=== PATIENT | male | born 1975 | race Caucasian/White ===

== ENCOUNTER 2017-08-23 23:15 | Inpatient (IN) | payer SELFPAY ==
[2017-08-23 23:47] VITALS: BMI 21.5
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
[2017-08-24] MEDS ORDERED: MAGNESIUM HYDROX 2400MG/30ML ORAL SUSPENSION 30 ML CUP PO PRN (01:04)
[2017-08-24] MEDS ORDERED: ACETAMINOPHEN 325 MG TABLET (FP) PO PRN (01:04)
[2017-08-24] MEDS ORDERED: METHADONE HCL 10 MG TABLET (FOR DETOX USE ONLY) PO ONE ×3 (01:04→23:00)
[2017-08-24] MEDS ORDERED: MENTHOL/PHENOL 1 EACH UD MM PRN (01:04)
[2017-08-24] MEDS ORDERED: IBUPROFEN 400 MG TABLET (FP) PO PRN (01:04)
[2017-08-24] MEDS ORDERED: MAGNESIUM CITRATE 300 ML BOTTLE PO PRN (01:04)
[2017-08-24] MEDS ORDERED: P-EPHED 60MG/TRIPROLIDI 2.5MG TABLET PO PRN (01:04)
[2017-08-24] MEDS ORDERED: LOPERAMIDE HCL 2 MG CAPSULE PO PRN (01:04)
[2017-08-24] MEDS ORDERED: MAG HYDROX/AL HYDROX/SIMETH 30 ML UNIT-DOSE CUP PO PRN (01:04)
[2017-08-24] MEDS ORDERED: diazePAM 5 MG TABLET PO ONE (01:04)
[2017-08-24] MEDS ORDERED: guaiFENesin/D-METHORPHAN HB 10 ML UNIT-DOSE CUPS PO PRN (01:04)
[2017-08-24] MEDS: diazePAM 5 MG TABLET PO SCH ×3 (05:46→22:48)
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
[2017-08-24] MEDS: PRENATAL VITAMINS W/ FOLIC ACID TABLET (FP) PO SCH (10:38)
--- NOTE | 2017-08-24 10:46 | EKG ---
Test Reason : Blood Pressure : / mmHG Vent. Rate : 065 BPM Atrial Rate : 065 BPM P-R Int : 138 ms QRS Dur : 088 ms QT Int : 408 ms P-R-T Axes : 066 086 073 degrees QTc Int : 424 ms NORMAL SINUS RHYTHM WITH SINUS ARRHYTHMIA NORMAL ECG NO PREVIOUS ECGS AVAILABLE Confirmed by TAL DENIS, TONIE ([id number]) on 08/24/2017 10:46:39 AM Referred By: Confirmed By:TONIE PARADA MD
[2017-08-24 11:17] LABS: HEMATOCRIT 33.3 % (35.4-49); HEMOGLOBIN 11.4 GM/dL (11.7-16.9); MCH 29.8 pg (25.7-33.7); MCHC 34.3 g/dl (32.0-35.9); MEAN CELL VOLUME 86.9 fl (80-96); MEAN PLT VOLUME 8.5 fl (7.5-11.1); PLATELET COUNT 217 K/MM3 (134-434); RBC 3.83 M/mm3 (4.00-5.60); RDW 13.8 % (11.9-15.9); WHITE BLOOD COUNT 6.8 K/mm3 (4.0-10.0)
[2017-08-24 11:30] LABS: ALBUMIN 3.3 g/dl (3.4-5.0); ANION GAP 2 (8-16); BLOOD UREA NITROGEN 23 mg/dL (7-18); CALCIUM 8.1 mg/dL (8.5-10.1); CHLORIDE 109 mmol/L (98-107); CO2 33 mmol/L (21-32); GLUCOSE,RANDOM 122 mg/dL (74-106); SGOT/AST 11 U/L (15-37); SGPT/ALT 14 U/L (12-78); SODIUM 144 mmol/L (136-145)
[2017-08-24 11:32] LABS: ALK PHOS 43 U/L (45-117); BILIRUBIN,TOTAL 0.3 mg/dL (0.2-1.0); CREATININE 0.9 mg/dL (0.7-1.3); TOT PROT 6.2 g/dl (6.4-8.2)
--- NOTE | 2017-08-24 16:17 | PN ---
[facility] CIWA - CIWA Score Nausea/Vomitin-No Nausea/No Vomiting Muscle Tremors: None Anxiety: 4-Mod. Anxious/Guarded Agitation: 4-Moderately Restless Paroxysmal Sweats: 3 Orientation: 0-Oriented Tacttile Disturbances: 3-Moderate Itch/Numb/Burn Auditory Disturbances: 2-Mild Harshness/Frighten Visual Disturbances: 0-None Headache: 0-None Present CIWA-Ar Total Score: 16 S COWS - Scale Resting Pulse: 0= [place] 80 or Below Sweatin= Chills/Flushing Restless Observation: 1= Difficult to Sit Still Pupil Size: 0= Normal to Room Light Bone or Joint Aches: 2= Severe Diffuse Aches Runny Nose/ Eye Tearin= Runny Nose/Eyes GI Upset > 30mins: 0= None Tremor Observation of Outstretched Hands: 0= None Yawning Observation: 1= 1-2x During Session Anxiety or Irritability: 2=Irritable/Anxious Goose Flesh Skin: 3=Piloe[place] COWS Score: 12 S Progress Note (SOAP) Subjective: Sweating, Body Aches, Anxious. Objective: PATIENT A & O X 3, OBSERVED AMBULATING ON UNIT. NO ACUTE DISTRESS. 08/24/17 16:16 Vital Signs Temperature 97.1 F L 08/24/17 14:31 Pulse Rate 57 L 08/24/17 14:31 Respiratory Rate 18 08/24/17 14:31 Blood Pressure 111/68 08/24/17 14:31 O2 Sat by Pulse Oximetry (%) Laboratory Tests 08/24/17 08/24/17 08/24/17 08:00 08:00 08:00 WBC 6.8 RBC 3.83 L Hgb 11.4 L Hct 33.3 L MCV 86.9 MCH 29.8 MCHC 34.3 RDW 13.8 Plt Count 217 MPV 8.5 Sodium 144 Potassium 4.0 Chloride 109 H Carbon Dioxide 33 H Anion Gap 2 L BUN 23 H Creatinine 0.9 Creat Clearance w eGFR > 60 Random Glucose 122 H Calcium 8.1 L Total Bilirubin 0.3 AST 11 L ALT 14 Alkaline Phosphatase 43 L Total Protein 6.2 L Albumin 3.3 L RPR Titer Nonreactive LABS NOTED. UA RESULTS PENDING. 08/24/17 16:18 Assessment: 04/29/18 16:17 WITHDRAWAL SYMPTOMS. Plan: CONTINUE DETOX.
[2017-08-24] MEDS ORDERED: MELATONIN 5 MG TABLETS PO PRN (22:00)
[2017-08-24] MEDS: THIAMINE HCL 100 MG TABLET (FP) PO SCH (22:47)
[2017-08-25] MEDS: diazePAM 5 MG TABLET PO SCH ×3 (05:10→22:14)
[2017-08-25] MEDS ORDERED: METHADONE HCL 10 MG TABLET (FOR DETOX USE ONLY) PO SCH (10:00)
[2017-08-25] MEDS: PRENATAL VITAMINS W/ FOLIC ACID TABLET (FP) PO SCH (10:15)
[2017-08-25] MEDS: diazePAM 5 MG TABLET PO PRN (10:15)
--- NOTE | 2017-08-25 12:33 | PN ---
[facility] CIWA - CIWA Score Nausea/Vomitin-No Nausea/No Vomiting Muscle Tremors: 4-Moderate,w/Arms Extend Anxiety: 4-Mod. Anxious/Guarded Agitation: 4-Moderately Restless Paroxysmal Sweats: 1-Minimal Palms Moist Orientation: 0-Oriented Tacttile Disturbances: 0-None Auditory Disturbances: 0-None Visual Disturbances: 0-None Headache: 0-None Present CIWA-Ar Total Score: 13 S COWS - Scale Resting Pulse: 1= [place] 81-100 Sweatin= Chills/Flushing Restless Observation: 3= Extraneous Movement Pupil Size: 0= Normal to Room Light Bone or Joint Aches: 1= Mild Discomfort Runny Nose/ Eye Tearin= Nasal Congestion GI Upset > 30mins: 1= Stomach Cramp Tremor Observation of Outstretched Hands: 1= Tremor [place], Not Seen Yawning Observation: 1= 1-2x During Session Anxiety or Irritability: 2=Irritable/Anxious Goose Flesh Skin: 0=Smooth Skin COWS Score: 12 [facility] Progress Note (SOAP) Subjective: ANXIETY,TREMOR,SNEEZING, NASAL CONGESTION, HOT/COLD, INTERMITTENT SLEEP. Objective: 08/25/17 12:35 Vital Signs Temperature 96.7 F L 08/25/17 09:28 Pulse Rate 98 H 08/25/17 09:28 Respiratory Rate 18 08/25/17 09:28 Blood Pressure 112/65 08/25/17 09:28 O2 Sat by Pulse Oximetry (%) Laboratory Last Values WBC 6.8 K/mm3 (4.0-10.0) 08/24/17 08:00 RBC 3.83 M/mm3 (4.00-5.60) L 08/24/17 08:00 Hgb 11.4 GM/dL (11.7-16.9) L 08/24/17 08:00 Hct 33.3 % (35.4-49) L 08/24/17 08:00 MCV 86.9 fl (80-96) 08/24/17 08:00 MCH 29.8 pg (25.7-33.7) 08/24/17 08:00 MCHC 34.3 g/dl (32.0-35.9) 08/24/17 08:00 RDW 13.8 % (11.9-15.9) 08/24/17 08:00 Plt Count 217 K/MM3 (134-434) 08/24/17 08:00 MPV 8.5 fl (7.5-11.1) 08/24/17 08:00 Sodium 144 mmol/L (136-145) 08/24/17 08:00 Potassium 4.0 mmol/L (3.5-5.1) 08/24/17 08:00 Chloride 109 mmol/L (98-107) H 08/24/17 08:00 Carbon Dioxide 33 mmol/L (21-32) H 08/24/17 08:00 Anion Gap 2 (8-16) L 08/24/17 08:00 BUN 23 mg/dL (7-18) H 08/24/17 08:00 Creatinine 0.9 mg/dL (0.7-1.3) 08/24/17 08:00 Creat Clearance w eGFR > 60 (>60) 08/24/17 08:00 Random Glucose 122 mg/dL (74-106) H 08/24/17 08:00 Calcium 8.1 mg/dL (8.5-10.1) L 08/24/17 08:00 Total Bilirubin 0.3 mg/dL (0.2-1.0) 08/24/17 08:00 AST 11 U/L (15-37) L 08/24/17 08:00 ALT 14 U/L (12-78) 08/24/17 08:00 Alkaline Phosphatase 43 U/L (45-117) L 08/24/17 08:00 Total Protein 6.2 g/dl (6.4-8.2) L 08/24/17 08:00 Albumin 3.3 g/dl (3.4-5.0) L 08/24/17 08:00 RPR Titer Nonreactive (NONREACTIVE) 08/24/17 08:00 Assessment: 08/25/17 12:35 WITHDRAWAL SX Plan: CONTINUE DETOX ACTIFED PRN
[2017-08-25 20:11] LABS: URINE APPEARANCE SLCLOUDY; URINE BILIRUBIN NEGATIVE (<2.0 mg/dL); URINE BLOOD NEGATIVE (NEGATIVE); URINE COLOR YELLOW; URINE GLUCOSE (UA) NEGATIVE (NEGATIVE); URINE KETONE NEGATIVE (NEGATIVE); URINE LEUK ESTERASE NEGATIVE (NEGATIVE); URINE NITRITE NEGATIVE (NEGATIVE); URINE PROTEIN NEGATIVE (NEGATIVE); URINE UROBILINOGEN NEGATIVE mg/dL (0.2-1.0)
[2017-08-25] MEDS: ZOLPIDEM TARTRATE 5 MG TABLET PO PRN (22:13)
[2017-08-25] MEDS: THIAMINE HCL 100 MG TABLET (FP) PO SCH (22:13)
[2017-08-26] MEDS: diazePAM 5 MG TABLET PO PRN ×4 (00:04→21:14)
[2017-08-26 09:58] LABS: HEMATOCRIT 39.4 % (35.4-49); HEMOGLOBIN 13.5 GM/dL (11.7-16.9); MCH 29.4 pg (25.7-33.7); MCHC 34.1 g/dl (32.0-35.9); MEAN CELL VOLUME 86.2 fl (80-96); MEAN PLT VOLUME 8.8 fl (7.5-11.1); PLATELET COUNT 261 K/MM3 (134-434); RBC 4.57 M/mm3 (4.00-5.60); RDW 13.9 % (11.9-15.9)
[2017-08-26] MEDS ORDERED: METHADONE HCL 5 MG TABLET (FOR DETOX USE ONLY) PO SCH (10:00)
[2017-08-26] MEDS: PRENATAL VITAMINS W/ FOLIC ACID TABLET (FP) PO SCH (10:31)
[2017-08-26] MEDS: diazePAM 5 MG TABLET PO SCH ×2 (10:31→22:02)
--- NOTE | 2017-08-26 10:41 | PN ---
[facility] Progress Note (SOAP) Subjective: ANXIETY, IRRITABILITY,INSOMNIA-AMBIEN NOT EFFECTIVE. Objective: 08/26/17 10:38 Vital Signs Temperature 96.8 F L 08/26/17 09:20 Pulse Rate 95 H 08/26/17 09:20 Respiratory Rate 18 08/26/17 09:20 Blood Pressure 135/83 08/26/17 09:20 O2 Sat by Pulse Oximetry (%) Laboratory Last Values WBC 9.0 K/mm3 (4.0-10.0) D 08/26/17 07:00 RBC 4.57 M/mm3 (4.00-5.60) 08/26/17 07:00 Hgb 13.5 GM/dL (11.7-16.9) D 08/26/17 07:00 Hct 39.4 % (35.4-49) D 08/26/17 07:00 MCV 86.2 fl (80-96) 08/26/17 07:00 MCH 29.4 pg (25.7-33.7) 08/26/17 07:00 MCHC 34.1 g/dl (32.0-35.9) 08/26/17 07:00 RDW 13.9 % (11.9-15.9) 08/26/17 07:00 Plt Count 261 K/MM3 (134-434) D 08/26/17 07:00 MPV 8.8 fl (7.5-11.1) 08/26/17 07:00 Sodium 144 mmol/L (136-145) 08/24/17 08:00 Potassium 4.0 mmol/L (3.5-5.1) 08/24/17 08:00 Chloride 109 mmol/L (98-107) H 08/24/17 08:00 Carbon Dioxide 33 mmol/L (21-32) H 08/24/17 08:00 Anion Gap 2 (8-16) L 08/24/17 08:00 BUN 23 mg/dL (7-18) H 08/24/17 08:00 Creatinine 0.9 mg/dL (0.7-1.3) 08/24/17 08:00 Creat Clearance w eGFR > 60 (>60) 08/24/17 08:00 Random Glucose 122 mg/dL (74-106) H 08/24/17 08:00 Calcium 8.1 mg/dL (8.5-10.1) L 08/24/17 08:00 Total Bilirubin 0.3 mg/dL (0.2-1.0) 08/24/17 08:00 AST 11 U/L (15-37) L 08/24/17 08:00 ALT 14 U/L (12-78) 08/24/17 08:00 Alkaline Phosphatase 43 U/L (45-117) L 08/24/17 08:00 Total Protein 6.2 g/dl (6.4-8.2) L 08/24/17 08:00 Albumin 3.3 g/dl (3.4-5.0) L 08/24/17 08:00 Urine Color Yellow 08/25/17 13:55 Urine Appearance Slcloudy 08/25/17 13:55 Urine pH 8.0 (5.0-8.0) 08/25/17 13:55 Ur Specific [place] 1.011 (1.001-1.035) 08/25/17 13:55 Urine Protein Negative (NEGATIVE) 08/25/17 13:55 Urine Glucose (UA) Negative (NEGATIVE) 08/25/17 13:55 Urine Ketones Negative (NEGATIVE) 08/25/17 13:55 Urine Blood Negative (NEGATIVE) 08/25/17 13:55 Urine Nitrite Negative (NEGATIVE) 08/25/17 13:55 Urine Bilirubin Negative (<2.0 mg/dL) 08/25/17 13:55 Urine Urobilinogen Negative mg/dL (0.2-1.0) 08/25/17 13:55 Ur Leukocyte Esterase Negative (NEGATIVE) 08/25/17 13:55 RPR Titer Nonreactive (NONREACTIVE) 08/24/17 08:00 Laboratory Tests 08/24/17 08/24/17 08/24/17 08:00 08:00 08:00 WBC 6.8 RBC 3.83 L Hgb 11.4 L Hct 33.3 L MCV 86.9 MCH 29.8 MCHC 34.3 RDW 13.8 Plt Count 217 MPV 8.5 Sodium 144 Potassium 4.0 Chloride 109 H Carbon Dioxide 33 H Anion Gap 2 L BUN 23 H Creatinine 0.9 Creat Clearance w eGFR > 60 Random Glucose 122 H Calcium 8.1 L Total Bilirubin 0.3 AST 11 L ALT 14 Alkaline Phosphatase 43 L Total Protein 6.2 L Albumin 3.3 L Urine Color Urine Appearance Urine pH Ur Specific [place] Urine Protein Urine Glucose (UA) Urine Ketones Urine Blood Urine Nitrite Urine Bilirubin Urine Urobilinogen Ur Leukocyte Esterase RPR Titer Nonreactive 08/25/17 08/26/17 13:55 07:00 WBC 9.0 D RBC 4.57 Hgb 13.5 D Hct 39.4 D MCV 86.2 MCH 29.4 MCHC 34.1 RDW 13.9 Plt Count 261 D MPV 8.8 Sodium Potassium Chloride Carbon Dioxide Anion Gap BUN Creatinine Creat Clearance w eGFR Random Glucose Calcium Total Bilirubin AST ALT Alkaline Phosphatase Total Protein Albumin Urine Color Yellow Urine Appearance Slcloudy Urine pH 8.0 Ur Specific [place] 1.011 Urine Protein Negative Urine Glucose (UA) Negative Urine Ketones Negative Urine Blood Negative Urine Nitrite Negative Urine Bilirubin Negative Urine Urobilinogen Negative Ur Leukocyte Esterase Negative RPR Titer LABS NOTED Assessment: 08/26/17 10:39 WITHDRAWAL SX Plan: CONTINUE DETOX F/U WITH PSYCH RE:INSOMNIA
[2017-08-26 11:09] LABS: CHLORIDE 104 mmol/L (98-107); POTASSIUM 4.3 mmol/L (3.5-5.1); SODIUM 142 mmol/L (136-145)
[2017-08-26 11:27] LABS: ALBUMIN 3.8 g/dl (3.4-5.0); ALK PHOS 47 U/L (45-117); ANION GAP 10 (8-16); BILIRUBIN,TOTAL 0.5 mg/dL (0.2-1.0); BLOOD UREA NITROGEN 11 mg/dL (7-18); CALCIUM 9.3 mg/dL (8.5-10.1); CO2 28 mmol/L (21-32); CREATININE 0.9 mg/dL (0.7-1.3); GLUCOSE,RANDOM 104 mg/dL (74-106); SGOT/AST 15 U/L (15-37); SGPT/ALT 15 U/L (12-78)
[2017-08-26] MEDS: THIAMINE HCL 100 MG TABLET (FP) PO SCH (22:02)
[2017-08-26] MEDS: ZOLPIDEM TARTRATE 5 MG TABLET PO PRN (22:02)
[2017-08-27 06:11] VITALS: TEMP 97.7
[2017-08-27 09:11] VITALS: BP 114/69; PULSE 82
--- NOTE | 2017-08-27 12:26 | PN ---
[facility] Progress Note (SOAP) Subjective: PT DECLINED TO CONTINUE WITH DETOX STATING HE DOES NOT WANT ANY MORE MEDICATION AND WANTS TO LEAVE. EXPLAINED TO PT THE NEED TO STAY IN TREATMENT FOR APPROPRIATE TAPER OF DETOX MEDS BUT TO NO AVAIL. PT MET WITH HIS COUNSELOR, NATHANIEL ABBOTT AND WILL FOLLOW UP AT [facility] IN [place] FOR AFTERCARE. INSTRUCTED TO FOLLOW UP AT [facility] FOR MEDICAL MANAGEMENT. Objective: 08/27/17 12:22 Vital Signs Temperature 97.7 F 08/27/17 09:10 Pulse Rate 82 08/27/17 09:10 Respiratory Rate 18 08/27/17 09:10 Blood Pressure 114/69 08/27/17 09:10 O2 Sat by Pulse Oximetry (%) Laboratory Last Values WBC 9.0 K/mm3 (4.0-10.0) D 08/26/17 07:00 RBC 4.57 M/mm3 (4.00-5.60) 08/26/17 07:00 Hgb 13.5 GM/dL (11.7-16.9) D 08/26/17 07:00 Hct 39.4 % (35.4-49) D 08/26/17 07:00 MCV 86.2 fl (80-96) 08/26/17 07:00 MCH 29.4 pg (25.7-33.7) 08/26/17 07:00 MCHC 34.1 g/dl (32.0-35.9) 08/26/17 07:00 RDW 13.9 % (11.9-15.9) 08/26/17 07:00 Plt Count 261 K/MM3 (134-434) D 08/26/17 07:00 MPV 8.8 fl (7.5-11.1) 08/26/17 07:00 Sodium 142 mmol/L (136-145) 08/26/17 07:00 Potassium 4.3 mmol/L (3.5-5.1) 08/26/17 07:00 Chloride 104 mmol/L (98-107) 08/26/17 07:00 Carbon Dioxide 28 mmol/L (21-32) 08/26/17 07:00 Anion Gap 10 (8-16) 08/26/17 07:00 BUN 11 mg/dL (7-18) D 08/26/17 07:00 Creatinine 0.9 mg/dL (0.7-1.3) 08/26/17 07:00 Creat Clearance w eGFR > 60 (>60) 08/26/17 07:00 Random Glucose 104 mg/dL (74-106) 08/26/17 07:00 Calcium 9.3 mg/dL (8.5-10.1) 08/26/17 07:00 Total Bilirubin 0.5 mg/dL (0.2-1.0) D 08/26/17 07:00 AST 15 U/L (15-37) D 08/26/17 07:00 ALT 15 U/L (12-78) 08/26/17 07:00 Alkaline Phosphatase 47 U/L (45-117) 08/26/17 07:00 Total Protein 7.0 g/dl (6.4-8.2) 08/26/17 07:00 Albumin 3.8 g/dl (3.4-5.0) 08/26/17 07:00 Urine Color Yellow 08/25/17 13:55 Urine Appearance Slcloudy 08/25/17 13:55 Urine pH 8.0 (5.0-8.0) 08/25/17 13:55 Ur Specific [place] 1.011 (1.001-1.035) 08/25/17 13:55 Urine Protein Negative (NEGATIVE) 08/25/17 13:55 Urine Glucose (UA) Negative (NEGATIVE) 08/25/17 13:55 Urine Ketones Negative (NEGATIVE) 08/25/17 13:55 Urine Blood Negative (NEGATIVE) 08/25/17 13:55 Urine Nitrite Negative (NEGATIVE) 08/25/17 13:55 Urine Bilirubin Negative (<2.0 mg/dL) 08/25/17 13:55 Urine Urobilinogen Negative mg/dL (0.2-1.0) 08/25/17 13:55 Ur Leukocyte Esterase Negative (NEGATIVE) 08/25/17 13:55 RPR Titer Nonreactive (NONREACTIVE) 08/24/17 08:00 Assessment: 08/27/17 12:22 NAD Plan: PT SIGNED OUT AMA
--- NOTE | 2017-08-27 12:29 | DS ---
[facility] Detox Discharge Summary Admission Date: 08/23/17 Discharge Date: 08/27/17 - History Present History: Opioid Dependence Additional Comments: PT DECLINED TO COMPLETE DETOX PROTOCOL. WANTS TO LEAVE TODAY. ALERT O X 3. SLIGHT ANXIETY BUT NAD. Pertinent Past History: PLEASE SEE DX BELOW - Physical Exam Results Vital Signs: Vital Signs Temperature 97.7 F 08/27/17 09:10 Pulse Rate 82 08/27/17 09:10 Respiratory Rate 18 08/27/17 09:10 Blood Pressure 114/69 08/27/17 09:10 O2 Sat by Pulse Oximetry (%) Pertinent Admission Physical Exam Findings: WITHDRAWAL SX Laboratory Last Values WBC 9.0 K/mm3 (4.0-10.0) D 08/26/17 07:00 RBC 4.57 M/mm3 (4.00-5.60) 08/26/17 07:00 Hgb 13.5 GM/dL (11.7-16.9) D 08/26/17 07:00 Hct 39.4 % (35.4-49) D 08/26/17 07:00 MCV 86.2 fl (80-96) 08/26/17 07:00 MCH 29.4 pg (25.7-33.7) 08/26/17 07:00 MCHC 34.1 g/dl (32.0-35.9) 08/26/17 07:00 RDW 13.9 % (11.9-15.9) 08/26/17 07:00 Plt Count 261 K/MM3 (134-434) D 08/26/17 07:00 MPV 8.8 fl (7.5-11.1) 08/26/17 07:00 Sodium 142 mmol/L (136-145) 08/26/17 07:00 Potassium 4.3 mmol/L (3.5-5.1) 08/26/17 07:00 Chloride 104 mmol/L (98-107) 08/26/17 07:00 Carbon Dioxide 28 mmol/L (21-32) 08/26/17 07:00 Anion Gap 10 (8-16) 08/26/17 07:00 BUN 11 mg/dL (7-18) D 08/26/17 07:00 Creatinine 0.9 mg/dL (0.7-1.3) 08/26/17 07:00 Creat Clearance w eGFR > 60 (>60) 08/26/17 07:00 Random Glucose 104 mg/dL (74-106) 08/26/17 07:00 Calcium 9.3 mg/dL (8.5-10.1) 08/26/17 07:00 Total Bilirubin 0.5 mg/dL (0.2-1.0) D 08/26/17 07:00 AST 15 U/L (15-37) D 08/26/17 07:00 ALT 15 U/L (12-78) 08/26/17 07:00 Alkaline Phosphatase 47 U/L (45-117) 08/26/17 07:00 Total Protein 7.0 g/dl (6.4-8.2) 08/26/17 07:00 Albumin 3.8 g/dl (3.4-5.0) 08/26/17 07:00 Urine Color Yellow 08/25/17 13:55 Urine Appearance Slcloudy 08/25/17 13:55 Urine pH 8.0 (5.0-8.0) 08/25/17 13:55 Ur Specific [place] 1.011 (1.001-1.035) 08/25/17 13:55 Urine Protein Negative (NEGATIVE) 08/25/17 13:55 Urine Glucose (UA) Negative (NEGATIVE) 08/25/17 13:55 Urine Ketones Negative (NEGATIVE) 08/25/17 13:55 Urine Blood Negative (NEGATIVE) 08/25/17 13:55 Urine Nitrite Negative (NEGATIVE) 08/25/17 13:55 Urine Bilirubin Negative (<2.0 mg/dL) 08/25/17 13:55 Urine Urobilinogen Negative mg/dL (0.2-1.0) 08/25/17 13:55 Ur Leukocyte Esterase Negative (NEGATIVE) 08/25/17 13:55 RPR Titer Nonreactive (NONREACTIVE) 08/24/17 08:00 - Treatment Hospital Course: Discharged Condition Good - Diagnosis (1) Cannabis dependence, uncomplicated Status: Acute (2) Opioid dependence with withdrawal Status: Acute (3) Sedative, hypnotic or anxiolytic dependence with withdrawal, uncomplicated Status: Acute (4) Arthritis of back Status: Chronic (5) Arthritis of left knee Status: Chronic (6) Insomnia Status: Acute Qualifiers: Insomnia type: unspecified Qualified Code(s): G47.00 - Insomnia, unspecified - AMA Did Patient Leave Against Medical Advice: Yes (AMA)
[2017-08-28] MEDS ORDERED: METHADONE HCL 10 MG TABLET (FOR DETOX USE ONLY) PO SCH (10:00)
[2017-08-28] MEDS ORDERED: diazePAM 5 MG TABLET PO SCH (10:00)
[2017-08-29] MEDS ORDERED: METHADONE HCL 5 MG TABLET (FOR DETOX USE ONLY) PO SCH (06:00)
== END 2017-08-27 09:18 | disposition left against medical advice (07) | DRG 770 ==
LOC: YASAS 23:15 → Y3N 23:58
PROVIDERS: ADMIT Internal Medicine; ATTEND Internal Medicine
PROC: HZ2ZZZZ Detoxification Services for Substance Abuse Treatment (ICD-10-PCS; principal; 2017-08-23)
DX: F11.23 Opioid dependence with withdrawal (principal); F13.230 Sedative, hypnotic or anxiolytic dependence with withdrawal, uncomplicated; F12.20 Cannabis dependence, uncomplicated; F32.9 Major depressive disorder, single episode, unspecified; F41.9 Anxiety disorder, unspecified; F19.280 Other psychoactive substance dependence with psychoactive substance-induced anxiety disorder; F19.282 Other psychoactive substance dependence with psychoactive substance-induced sleep disorder; M13.862 Other specified arthritis, left knee; M13.88 Other specified arthritis, other site; G47.00 Insomnia, unspecified; R00.0 Tachycardia, unspecified
CPT/HCPCS: 36415; 80053; 81003; 85027; 86593; 93005; 93010